=== PATIENT | male | born 1985 | race Hispanic/Latino ===

== ENCOUNTER → 2022-04-07 | Outpatient (CLI) | payer BC | LOC: SLEEP 17:00 | PROVIDERS: ATTEND Internal Medicine | DX: G47.33 Obstructive sleep apnea (adult) (pediatric) (principal); F39 Unspecified mood [affective] disorder; E66.9 Obesity, unspecified | CPT/HCPCS: 95810 ==

== ENCOUNTER 2022-07-11 18:27 | Emergency (ER) | payer BC, OTHER ==
[~2022-07-11] VITALS: Ht 170.2 cm; Wt 106.6 kg
[2022-07-11] MEDS ORDERED: KETOROLAC TROMETHAMINE 60 MG/2 ML VIAL IM STA (18:49)
[2022-07-11] MEDS ORDERED: VENTOLIN HFA18 GM INH (20:48)
[2022-07-11] MEDS ORDERED: PREDNISONE20 MG PO (20:48)
[2022-07-11] MEDS ORDERED: AZITHROMYCIN250 MG PO (20:48)
[2022-07-11] MEDS ORDERED: ULTRAM 50MG50 MG PO (20:48)
== END 2022-07-11 20:56 | disposition home or self-care (01) ==
LOC: FSED 18:46
DX: S50.01XA Contusion of right elbow, initial encounter (principal); R07.89 Other chest pain; V19.9XXA Pedal cyclist (driver) (passenger) injured in unspecified traffic accident, initial encounter; Y93.55 Activity, bike riding; Y99.8 Other external cause status
CPT/HCPCS: 71250; 73080; 99283; J1885